=== PATIENT | male | born 1955 ===

== ENCOUNTER 2022-04-26 15:30 | Observation (INO) | payer OTHER ==
[~2022-04-26 15:30] MED LIST: oxyCODONE 5 MG Tab PO ONE
[2022-04-26] MEDS ORDERED: ceFAZolin 1 GM in Premix Bag 1 BAG IV STA (16:06)
[2022-04-26] MEDS ORDERED: Diphtheria,Pertussis(Acell),Tetanus Vaccine 0.5 ML Syringe IM ONE (16:08)
[2022-04-26] MEDS ORDERED: fentaNYL 50 MCG/ML SDV IVPUSH ONE (16:08)
[2022-04-26] MEDS ORDERED: Ondansetron 4 MG/2 ML SDV IVPUSH ONE (16:09)
[2022-04-26] MEDS ORDERED: fentaNYL 100 MCG/2 ML SDV ONE (16:58)
[2022-04-26] MEDS ORDERED: ceFAZolin 1 GM Vial ONE (16:58)
[2022-04-26] MEDS ORDERED: Diphtheria,Pertussis(Acell),Tetanus Vaccine 0.5 ML Syringe ONE (16:59)
[2022-04-26] MEDS ORDERED: Ondansetron 4 MG/2 ML SDV ONE (16:59)
[2022-04-26] MEDS ORDERED: Sodium Chloride 0.9% 50 ML ONE (17:00)
[2022-04-26] MEDS ORDERED: Iopamidol 755 Mg/ML 100 ML Bottle IV ONE (20:26)
[2022-04-26] MEDS ORDERED: Bacitracin Oint 1 GM U/D Packet ONE ×2 (21:47→22:04)
[2022-04-27] MEDS ORDERED: Morphine 2 MG/ML SYRINGE IV ONE ×6 (00:52→21:32)
[2022-04-27] MEDS ORDERED: oxyCODONE 5 MG Tab PO ONE ×4 (03:00→20:00)
[2022-04-28] MEDS ORDERED: oxyCODONE 5 MG Tab PO ONE ×5 (02:00→21:30)
[2022-04-28] MEDS ORDERED: Morphine 2 MG/ML SYRINGE IV ONE ×3 (04:20→08:23)
[2022-04-29] MEDS ORDERED: oxyCODONE 5 MG Tab PO ONE (03:35)
== END 2022-04-29 13:00 | disposition home or self-care (01) ==
LOC: MW.ED 15:30 → MW.ZCENSUS 20:25 → MW.ED 22:52
PROVIDERS: ADMIT Student in an Organized Health Care Education/Training Program; ATTEND Student in an Organized Health Care Education/Training Program
DX: S06.0X9A Concussion with loss of consciousness of unspecified duration, initial encounter (principal); S63.253A Unspecified dislocation of left middle finger, initial encounter; S52.501A Unspecified fracture of the lower end of right radius, initial encounter for closed fracture; S52.502A Unspecified fracture of the lower end of left radius, initial encounter for closed fracture; S52.615A Nondisplaced fracture of left ulna styloid process, initial encounter for closed fracture; S82.002A Unspecified fracture of left patella, initial encounter for closed fracture; S62.600A Fracture of unspecified phalanx of right index finger, initial encounter for closed fracture; S02.5XXA Fracture of tooth (traumatic), initial encounter for closed fracture; S13.4XXA Sprain of ligaments of cervical spine, initial encounter; S00.83XA Contusion of other part of head, initial encounter; Z23 Encounter for immunization; Z20.822 Contact with and (suspected) exposure to COVID-19; Z79.82 Long term (current) use of aspirin; Z79.899 Other long term (current) drug therapy; Z98.890 Other specified postprocedural states
CPT/HCPCS: 70450; 70486; 70551; 71260; 72125; 72128; 72131; 73030; 73110; 73130; 73140; 73552; 73560; 74177; 85025; 90715; 97161; 97530; A9270; J0690; J2270; J2405; J3010; Q9967; 29125; 99285